=== PATIENT | male | born 1935 | race Caucasian/White ===

== ENCOUNTER 2024-07-23 16:35 | Inpatient (IN) ==
[2024-07-23] MEDS: IPRATROPIUM/ALBUTEROL 3 ML AMPUL.NEB NEB ONE ×3 (17:08→19:56)
[2024-07-23 17:09] LABS: Basophils # (Auto) 0.04 K/mcL (0.00-0.30); Basophils % (Auto) 0.3 % (0.0-2.0); Eosinophils # (Auto) 0.08 K/mcL (0.00-0.70); Eosinophils % (Auto) 0.6 % (0.0-7.0); Hematocrit 46.8 % (40.1-51.0); Hemoglobin 15.4 g/dL (13.7-17.5); Lymphocytes # (Auto) 1.54 K/mcL (1.50-4.80); Mean Cell Volume 92.1 fL (80.0-100.0); Mean Corpuscular HGB Conc 32.9 g/dL (31.0-36.0); Mean Platelet Volume 10.1 fL (8.8-12.5); Monocytes # (Auto) 0.75 K/mcL (0.10-0.90); Monocytes % (Auto) 5.8 % (1.0-12.0); Neutrophils % (Auto) 81.1 % (38.0-78.0); Platelet Count 170 K/mcL (140-440); RBC 5.08 M/mcL (4.63-6.08); Red Cell Distribution Width 13.2 % (11.5-14.5); WBC 12.9 K/mcL (4.5-11.0)
[2024-07-23 17:57] LABS: ALT/SGPT 14 U/L (<40); AST/SGOT 19 U/L (<40); Albumin 4.1 gm/dL (3.2-5.2); Albumin/Globulin Ratio 1.5 (1.0-2.3); Alkaline Phosphatase 101 U/L (39-117); Bilirubin,Total 1.5 mg/dL (0.1-1.0); Blood Urea Nitrogen 47 mg/dL (8-23); Calcium 8.9 mg/dL (8.6-10.4); Carbon Dioxide 25 mmol/L (22-30); Chloride 101 mmol/L (96-108); Globulin 2.8 gm/dL (2.2-3.7); Glomerular Filtration Rate 27; Glucose 118 mg/dL (70-105); Sodium 141 mmol/L (133-145)
[2024-07-23] MEDS: methylPREDNISolone SOD SUCC 125 MG/2 ML VIAL IV ONE (18:15)
[2024-07-23] MEDS: METOPROLOL TARTRATE 5 MG/5 ML VIAL IV ONE ×2 (19:27→19:51)
[2024-07-23] MEDS: METOPROLOL SUCCINATE 25 MG TAB.XL.24H PO ONE (20:14)
[2024-07-23] MEDS ORDERED: ACETAMINOPHEN 325 MG TABLET PO PRN (21:59)
[2024-07-23] MEDS ORDERED: ONDANSETRON 4 MG/2 ML VIAL IV PRN (21:59)
[2024-07-23] MEDS ORDERED: LACTULOSE 20 GM/30 ML ORAL.SOL PO PRN (21:59)
[2024-07-23] MEDS ORDERED: LEVALBUTEROL 0.63 MG/3 ML AMPUL.NEB NEB PRN (21:59)
[2024-07-23] MEDS ORDERED: SENNOSIDES 1 TABLET PO PRN (21:59)
[2024-07-23] MEDS ORDERED: METOPROLOL TARTRATE 5 MG/5 ML VIAL IV PRN (21:59)
[2024-07-23] MEDS: DOCUSATE SODIUM 100 MG CAPSULE PO SCH (22:20)
[2024-07-23] MEDS: 0.9 % SODIUM CHLORIDE 10 ML SYRINGE IV SCH (22:28)
[2024-07-23] MEDS: 0.9 % SODIUM CHLORIDE 500 ML IV ONE (23:43)
[2024-07-24] MEDS: LEVALBUTEROL 1.25 MG/3 ML AMPUL.NEB NEB SCH (01:04)
[2024-07-24] MEDS: IPRATROPIUM 2.5 ML AMPUL.NEB NEB SCH (01:04)
[2024-07-24 05:35] LABS: Basophils # (Auto) 0 K/mcL (0.00-0.30); Basophils % (Auto) 0 % (0.0-2.0); Eosinophils # (Auto) 0 K/mcL (0.00-0.70); Eosinophils % (Auto) 0 % (0.0-7.0); Hematocrit 45.5 % (40.1-51.0); Hemoglobin 14.7 g/dL (13.7-17.5); Lymphocytes # (Auto) 0.43 K/mcL (1.50-4.80); Lymphocytes % (Auto) 4.4 % (15.5-49.0); Mean Cell Volume 94.6 fL (80.0-100.0); Mean Corpuscular HGB Conc 32.3 g/dL (31.0-36.0); Mean Platelet Volume 10.2 fL (8.8-12.5); Monocytes # (Auto) 0.08 K/mcL (0.10-0.90); Monocytes % (Auto) 0.8 % (1.0-12.0); Neutrophils % (Auto) 94.5 % (38.0-78.0); Platelet Count 177 K/mcL (140-440); RBC 4.81 M/mcL (4.63-6.08); Red Cell Distribution Width 13.3 % (11.5-14.5); WBC 9.8 K/mcL (4.5-11.0)
[2024-07-24 06:23] LABS: ALT/SGPT 13 U/L (<40); AST/SGOT 20 U/L (<40); Albumin/Globulin Ratio 1.4 (1.0-2.3); Alkaline Phosphatase 93 U/L (39-117); Bilirubin,Direct 0.4 mg/dL (<0.3); Bilirubin,Total 1.2 mg/dL (0.1-1.0); Blood Urea Nitrogen 47 mg/dL (8-23); Calcium 9.2 mg/dL (8.6-10.4); Carbon Dioxide 23 mmol/L (22-30); Chloride 102 mmol/L (96-108); Globulin 2.8 gm/dL (2.2-3.7); Glomerular Filtration Rate 29; Glucose 166 mg/dL (70-105); Lactate Dehydrogenase 154 U/L (135-225); Phosphorous 3.5 mg/dL (2.5-4.5); Potassium 3.7 mmol/L (3.3-5.1); Sodium 141 mmol/L (133-145); Triglycerides 53 mg/dL (<150); Uric Acid 10.4 mg/dL (2.5-8.0)
[2024-07-24] MEDS: APIXABAN 5 MG TABLET PO SCH (08:29)
[2024-07-24] MEDS: methylPREDNISolone SOD SUCC 125 MG/2 ML VIAL IV SCH (08:30)
[2024-07-24] MEDS: METOPROLOL SUCCINATE 25 MG TAB.XL.24H PO SCH (10:09)
[2024-07-24] MEDS: ATORVASTATIN 40 MG TABLET PO SCH (21:04)
[2024-07-24] MEDS: TORSEMIDE 10 MG TABLET PO SCH (21:04)
[2024-07-24] MEDS: TAMSULOSIN 0.4 MG CAPSULE PO SCH (21:04)
[2024-07-24] MEDS: APIXABAN 2.5 MG TABLET PO SCH (21:04)
[2024-07-25 05:32] LABS: Basophils # (Auto) 0 K/mcL (0.00-0.30); Basophils % (Auto) 0 % (0.0-2.0); Eosinophils # (Auto) 0 K/mcL (0.00-0.70); Eosinophils % (Auto) 0 % (0.0-7.0); Hematocrit 44.5 % (40.1-51.0); Hemoglobin 14.9 g/dL (13.7-17.5); Lymphocytes # (Auto) 0.84 K/mcL (1.50-4.80); Mean Cell Volume 91.8 fL (80.0-100.0); Mean Corpuscular HGB Conc 33.5 g/dL (31.0-36.0); Mean Platelet Volume 9.9 fL (8.8-12.5); Monocytes # (Auto) 0.81 K/mcL (0.10-0.90); Monocytes % (Auto) 4.8 % (1.0-12.0); Neutrophils % (Auto) 89.9 % (38.0-78.0); Platelet Count 180 K/mcL (140-440); RBC 4.85 M/mcL (4.63-6.08); Red Cell Distribution Width 13.3 % (11.5-14.5); WBC 16.9 K/mcL (4.5-11.0)
[2024-07-25 05:42] LABS: ALT/SGPT 16 U/L (<40); AST/SGOT 28 U/L (<40); Albumin 3.9 gm/dL (3.2-5.2); Albumin/Globulin Ratio 1.4 (1.0-2.3); Alkaline Phosphatase 87 U/L (39-117); Bilirubin,Direct 0.3 mg/dL (<0.3); Bilirubin,Total 0.7 mg/dL (0.1-1.0); Blood Urea Nitrogen 63 mg/dL (8-23); Calcium 9.6 mg/dL (8.6-10.4); Carbon Dioxide 25 mmol/L (22-30); Chloride 102 mmol/L (96-108); Globulin 2.8 gm/dL (2.2-3.7); Glomerular Filtration Rate 29; Glucose 134 mg/dL (70-105); Lactate Dehydrogenase 173 U/L (135-225); Potassium 4.3 mmol/L (3.3-5.1); Sodium 140 mmol/L (133-145); Triglycerides 71 mg/dL (<150); Uric Acid 11.3 mg/dL (2.5-8.0)
[2024-07-25] MEDS: predniSONE 20 MG TABLET PO SCH (07:59)
[2024-07-25] MEDS: ASPIRIN 81 MG TAB.CHEW PO SCH (09:44)
[2024-07-26 08:36] LABS: Basophils # (Auto) 0 K/mcL (0.00-0.30); Basophils % (Auto) 0 % (0.0-2.0); Eosinophils # (Auto) 0.02 K/mcL (0.00-0.70); Eosinophils % (Auto) 0.2 % (0.0-7.0); Hematocrit 46.6 % (40.1-51.0); Hemoglobin 15.3 g/dL (13.7-17.5); Lymphocytes # (Auto) 1.39 K/mcL (1.50-4.80); Mean Cell Volume 91.6 fL (80.0-100.0); Mean Corpuscular HGB Conc 32.8 g/dL (31.0-36.0); Mean Platelet Volume 9.4 fL (8.8-12.5); Monocytes # (Auto) 0.82 K/mcL (0.10-0.90); Monocytes % (Auto) 6.5 % (1.0-12.0); Neutrophils % (Auto) 81.9 % (38.0-78.0); Platelet Count 207 K/mcL (140-440); RBC 5.09 M/mcL (4.63-6.08); Red Cell Distribution Width 13.3 % (11.5-14.5); WBC 12.6 K/mcL (4.5-11.0)
[2024-07-26] MEDS: OMEPRAZOLE 20 MG CAPSULE PO SCH (08:36)
== END 2024-07-26 11:12 | disposition home health service (06) | DRG 202 ==
LOC: ED 16:35 → ICU 21:57
PROVIDERS: ADMIT Internal Medicine; ATTEND Internal Medicine